=== PATIENT | female | born 1945 | race Caucasian/White ===

== ENCOUNTER → 2016-10-19 | Outpatient (CLI) | payer OTHER ==
[~2016-10-19] MED LIST: ASCO500T16 PO; ASPCH81X PO; CALC-5 PO; CHOL2000 PO; DIPH50CA56 PO; ESTR1CRE PV; MULTTAB58 PO; SYN112 PO; ZCR40 PO
--- NOTE | 2016-10-19 09:55 | DIAGNOSTIC IMAGING REPORT ---
CHEST 2 VIEWS ROUTINE CLINICAL HISTORY: J45.909 [id number] dyspnea COMPARISON STUDY: 02/08/2014 FINDINGS: Moderate emphysematous change. Chronic apical fibrocalcific change. Slight blunting right lateral costophrenic angle components of which are chronic. IMPRESSION: Emphysematous change. No acute infiltrate. Slight blunting right lateral costophrenic angle components of which are chronic Electronically signed by: Carlito Olson M.D. 10/19/2016 9:54 AM Dictated Date/Time: 10/19/2016 9:53 AM
--- NOTE | 2016-10-20 10:11 | PULMONARY FUNCTION TEST ---
INTERPRETATION: Spirometry reveals moderate obstruction with no change in the airflow with use of albuterol.
--- NOTE | 2016-10-24 09:57 | PULMONARY FUNCTION TEST ---
INTERPRETATION: The spirometry reveals moderate obstruction with no significant change in the airflow with the use of albuterol.
== END | disposition home or self-care (01) ==
LOC: C.RC 09:22
PROVIDERS: ATTEND Family Medicine
DX: J45.909 Unspecified asthma, uncomplicated (principal)

== ENCOUNTER → 2016-12-24 | Outpatient (CLI) | payer OTHER ==
[2016-12-26 13:15] LABS: O&P GIARDIA AG NOT DETECTED (NOT DETECTED)
== END | disposition home or self-care (01) ==
LOC: C.LAB 07:04
PROVIDERS: ATTEND Family Medicine
DX: R19.7 Diarrhea, unspecified (principal)

== ENCOUNTER → 2017-01-11 | Outpatient (CLI) | payer OTHER | END | disposition home or self-care (01) | LOC: C.MAMM 13:06 | PROVIDERS: ATTEND Family Medicine | DX: M85.851 Other specified disorders of bone density and structure, right thigh (principal); M85.852 Other specified disorders of bone density and structure, left thigh ==